=== PATIENT | female | born 1965 | race Caucasian/White ===

== ENCOUNTER 2019-10-30 12:25 | Outpatient (CLI) | payer OTHER, SELFPAY ==
[2019-10-30 13:47] VITALS: BP 145/83; BP 145/85; PULSE 80; PULSE 86; RESP 18; O2SAT 95; O2SAT 96
== END 2019-10-30 13:47 | disposition home or self-care (01) ==
LOC: INF 12:28
PROVIDERS: PCP Nurse Practitioner Family; Visit Provider Nurse Practitioner Family
DX: D50.9 Iron deficiency anemia, unspecified (principal)
CPT/HCPCS: 96365; J1439

== ENCOUNTER 2019-11-06 12:23 | Outpatient (CLI) | payer OTHER, SELFPAY ==
[2019-11-06 12:34] VITALS: BP 171/75; PULSE 75; RESP 18; O2SAT 95
[2019-11-06 13:15] VITALS: BP 139/75; PULSE 74; RESP 18
== END 2019-11-06 13:15 | disposition home or self-care (01) ==
LOC: INF 12:23
PROVIDERS: Visit Provider Nurse Practitioner Family
DX: D50.9 Iron deficiency anemia, unspecified (principal)
CPT/HCPCS: 96365; J1439

== ENCOUNTER → 2020-03-08 17:43 | Outpatient (CLI) | payer OTHER, SELFPAY ==
[2020-03-10 16:24] LABS: Covid-19 Nasal PCR Sendout UK Not Detected
== END ==
PROVIDERS: PCP Nurse Practitioner Family; Visit Provider Nurse Practitioner Family
DX: Z20.828 Contact with and (suspected) exposure to other viral communicable diseases (principal)
CPT/HCPCS: U0003

== ENCOUNTER 2021-04-17 13:51 | Outpatient (CLI) | payer OTHER, SELFPAY ==
[2021-04-17 14:23] VITALS: BP 139/88; PULSE 93; RESP 18; TEMP 36.4; O2SAT 97
[2021-04-17 15:00] VITALS: BP 123/77; PULSE 78; RESP 18; O2SAT 97
== END 2021-04-17 15:00 | disposition home or self-care (01) ==
LOC: INF 13:55
PROVIDERS: PCP Nurse Practitioner Family; Visit Provider Nurse Practitioner Family
DX: D50.9 Iron deficiency anemia, unspecified (principal)
CPT/HCPCS: 96365; J1439

== ENCOUNTER 2021-04-23 14:00 | Outpatient (CLI) | payer OTHER, SELFPAY ==
[2021-04-23 14:22] VITALS: BP 149/79; PULSE 79; RESP 17; TEMP 36.7; O2SAT 96
[2021-04-23 15:15] VITALS: BP 153/76; PULSE 81; RESP 17; TEMP 36.7; O2SAT 97
== END 2021-04-23 15:17 | disposition home or self-care (01) ==
LOC: INF 14:09
PROVIDERS: Visit Provider Nurse Practitioner Family
DX: D50.9 Iron deficiency anemia, unspecified (principal)
CPT/HCPCS: 96365; J1439

== ENCOUNTER 2021-07-20 13:38 | Emergency (ER) | payer OTHER, SELFPAY ==
[2021-07-20 14:00] VITALS: BP 148/99; PULSE 106; RESP 28; TEMP 37.2; O2SAT 89; BMI 43.4
--- NOTE | 2021-07-20 14:00 | XR_ITS ---
PROCEDURE INFORMATION: Exam: XR Chest Exam date and time: 07/20/2021 2:00 PM Age: 56 years old Clinical indication: Cough TECHNIQUE: Imaging protocol: XR of the chest. Views: 1 view. COMPARISON: No relevant prior studies available. FINDINGS: Lungs: Unremarkable. No consolidation. Pleural spaces: Unremarkable. No pleural effusion. No pneumothorax. Heart/Mediastinum: Large hiatal hernia. Bones/joints: Unremarkable. IMPRESSION: Large hiatal hernia.
[2021-07-20 14:01] VITALS: O2SAT 96
[2021-07-20 14:12] LABS: Basophils # 0.1 K/mm3 (0-0.2); Eosinophils # 0.1 K/mm3 (0.0-0.4); Eosinophils % 0.6 % (0.1-12.0); Hematocrit 45.6 % (37.0-47.0); Hemoglobin 15.2 g/dL (12.2-16.2); Lymphocytes # 1.1 K/mm3 (0.7-4.5); Lymphocytes % 9.6 % (10-50); Mean Corpuscular HGB Conc 33.4 g/dL (31.8-35.4); Mean Corpuscular Hemoglobin 29.5 pg (27.0-31.2); Mean Corpuscular Volume 88.5 fl (81-99); Mean Platelet Volume 9.9 fl (7.4-10.4); Monocytes # 0.7 K/mm3 (0.1-1.0); Monocytes % 5.9 % (1.7-9.3); Neutrophils # 9.2 K/mm3 (1.8-7.8); Neutrophils % 82.8 % (37.0-80.0); Platelet Count 278 K/mm3 (142-424); Red Blood Count 5.15 M/mm3 (4.20-5.40); Red Cell Distribution Width 15.3 % (11.5-17.5); White Blood Count 11.2 K/mm3 (4.8-10.8)
[2021-07-20 14:14] LABS: Coronavirus 19, PCR Not Detected (NotDetected); Influenza A, PCR Not Detected (NotDetected); Influenza B, PCR Not Detected (NotDetected)
[2021-07-20 14:25] LABS: Chloride 103 mmol/L (98-107); Potassium 3.8 mmoL/L (3.5-5.1); Sodium 143 mmol/L (136-145)
[2021-07-20 14:26] LABS: ABG Base Excess 1.5 mmol/L (-2.4-2.3); ABG HCO3 25.8 mmhg (22.0-26.0); ABG Oxygen Saturation 98 % (90-100); ABG PCO2 39.5 mmhg (35.0-45.0); ABG PH 7.43 mmol/L (7.35-7.45); ABG PO2 79.4 mmhg (80-100); Allen's Test Acceptable; Oxygen RA %; Source Left Radial
[2021-07-20 14:28] LABS: Alanine Aminotransferase 44 U/L (12-78); Albumin Level 4.3 g/dl (3.5-5.0); Albumin/Globulin Ratio 1.4 (1.1-1.8); Alkaline Phosphatase 88 U/L (38-126); Anion Gap 12.8 mEq/L (5-15); Aspartate Amino Transferase 53 U/L (14-36); Bilirubin,Total 0.2 mg/dl (0.2-1.3); Blood Urea Nitrogen 15 mg/dl (7-17); Carbon Dioxide 31 mmol/L (22.0-30.0); Estimated Glomerular Filt Rate 103 ml/min (>60); GFR (African American) 124 ML/MIN (>60); Total Protein,Serum 7.3 g/dl (6.3-8.2)
[2021-07-20 14:29] LABS: Glucose 199 mg/dl (74-100)
--- NOTE | 2021-07-20 14:31 | ECG_ITS ---
APPROVED REPORT Exam: Resting ECG HR:102 bpm ECG Measurements Heart Rate 102 AXES TX 140 P 105 QRSd 84 QRS -13 QT 336 T 85 QTc 437 Conclusion Sinus tachycardia Otherwise normal ECG Electronically signed by : Everett He MD 07/21/2021 20:18:06
[2021-07-20 14:38] LABS: NT Pro Brain Natriuretic Pep. 228 pg/mL (0-125)
[2021-07-20 14:43] LABS: Troponin I 0.01 ng/ml (0.00-0.034)
--- NOTE | 2021-07-20 14:49 | CT_ITS ---
PROCEDURE INFORMATION: Exam: CTA Chest With Contrast Exam date and time: 07/20/2021 2:49 PM Age: 56 years old Clinical indication: Shortness of breath; Additional info: Short of breath TECHNIQUE: Imaging protocol: Computed tomographic angiography of the chest with contrast. 3D rendering (Not supervised by radiologist): MIP and/or 3D reconstructed images were created by the technologist. Radiation optimization: All CT scans at this facility use at least one of these dose optimization techniques: automated exposure control; mA and/or kV adjustment per patient size (includes targeted exams where dose is matched to clinical indication); or iterative reconstruction. Contrast material: ISOVUE 370; Contrast volume: 70 ml; Contrast route: INTRAVENOUS (IV); COMPARISON: CR XR CHEST PORTABLE 07/20/2021 2:09 PM FINDINGS: Pulmonary arteries: Negative for acute pulmonary embolism. Aorta: Unremarkable. No aortic aneurysm. No aortic dissection. Lungs: Patchy ground-glass densities bilateral upper lobes, left worse than right. Nonspecific finding although multifocal pneumonia suspected. Clinical correlation necessary. Pleural spaces: Unremarkable. No pneumothorax. No pleural effusion. Heart: Unremarkable. No cardiomegaly. No pericardial effusion. Lymph nodes: Unremarkable. No enlarged lymph nodes. Diaphragm: Large hiatal hernia. Bones/joints: Unremarkable. No acute fracture. Soft tissues: Unremarkable. Other findings: Previous granulomatous exposure. IMPRESSION: 1. Negative for acute pulmonary embolism. 2. Large hiatal hernia. 3. Patchy ground-glass densities bilateral upper lobes, left worse than right. Nonspecific finding although multifocal pneumonia suspected. Clinical correlation necessary.
--- NOTE | 2021-07-20 14:57 | [facility].EDGENADL ---
ED Disposition Clinical Impression: Atypical pneumonia Asthma with exacerbation Qualifiers: Asthma severity: mild Asthma persistence: intermittent Qualified Code(s): J45.21 - Mild intermittent asthma with (acute) exacerbation Disposition: Home, Self-Care Condition on Discharge: Good Instructions: DI for Atypical Pneumonia Prescriptions: cephALEXin [Cephalexin 500mg Tab] 500 mg PO BID #14 tab Transmission Status: Pending to [id number] Referrals: Sofia Borges [Primary Care Provider] - - Critical Care Critical Care Time: No Attestation: On 07/20/21, the high probability of a clinically significant, sudden or life threatening deterioration of the following system(s) required my full and direct attention, intervention and personal management. The time I documented below is in addition to time spent performing reported procedures but includes the following listed in this critical care notation. Medical Decision Making - Medical Records Medical records reviewed: Yes: I reviewed the patient's medical records. - Joe Inquiry Pt receiving controlled substance: No Vital Signs: 07/20/21 14:00 07/20/21 14:01 Temperature 98.9 F Temperature Source Oral Pulse Rate [Left Radial] 106 H Respiratory Rate 18 Blood Pressure [Right Arm] 148/99 H Blood Pressure Mean [Right Arm] 115 Blood Pressure Source [Right Arm] Automatic Cuff Blood Pressure Position [Right Arm] Sitting 02 Sat by Pulse Oximetry 89 L 96 Oxygen Delivery Method Room Air Nasal Cannula Oxygen Flow Rate (LPM) 2 - Lab Data Lab Results 07/20/21 13:50: SARS-CoV-2 (PCR) Not detected, Influenza A Untype (PCR) Not detected, Influenza Type B (PCR) Not detected 07/20/21 14:00: Specimen Source Left radial, O2 % Ra, ABG pH 7.43, ABG pCO2 39.5, ABG pO2 79.4 L, ABG HCO3 25.8, ABG Total CO2 27.0, ABG O2 Saturation 98, ABG Base Excess 1.5, Yong Test Acceptable 07/20/21 14:00: WBC 11.2 H, RBC 5.15, Hgb 15.2, Hct 45.6, MCV 88.5, MCH 29.5, MCHC 33.4, RDW 15.3, Plt Count 278, MPV 9.9, Neut % (Auto) 82.8 H, Lymph % (Auto) 9.6 L, [place] % (Auto) 5.9, Eos % (Auto) 0.6, Baso % (Auto) 1.0, Neut # (Auto) 9.2 H, Lymph # (Auto) 1.1, [place] # (Auto) 0.7, Eos # (Auto) 0.1, Baso # (Auto) 0.1 07/20/21 14:00: Sodium 143, Potassium 3.8, Chloride 103, Carbon Dioxide 31 H, Anion Gap 12.8, BUN 15, Creatinine 0.60, Estimated GFR 103, Est GFR ( Amer) 124, Glucose 199 H, Calcium 9.0, Total Bilirubin 0.2, AST 53 H, ALT 44, Alkaline Phosphatase 88, Troponin I 0.01, NT-Pro-B Natriuret Pep 228 H, Total Protein 7.3, Albumin 4.3, Globulin 3.0, Albumin/Globulin Ratio 1.4 07/20/21 14:35: Lactate 2.5 H Result diagrams: 07/20/21 14:00 07/20/21 14:00 Orders (Tests/Meds): ED MEDICATIONS Discontinued Medications Generic Name Dose Route Start Last Admin Trade Name Freq PRN Reason Stop Dose Admin Albuterol/Ipratropium 3 ml 07/20/21 14:01 07/20/21 14:13 Ipratropium/Albuterol 3 Ml Neb IH 07/20/21 14:02 3 ml ONCE ONE Administration Dexamethasone Sodium Phosphate 10 mg 07/20/21 14:01 07/20/21 14:40 Dexamethasone 4mg/Ml 5ml Mdv IV 07/20/21 14:02 10 mg ONCE ONE Administration Iopamidol 70 ml 07/20/21 15:05 07/20/21 15:06 Iopamidol-370 (76%);100ml Bottle IV 07/20/21 15:06 70 ml ONCE ONE Administration Sodium Chloride 50 ml 07/20/21 15:05 07/20/21 15:07 0.9 % Sodium Chloride 50 Ml Vial IV 07/20/21 15:06 50 ml ONCE ONE Administration Sodium Chloride 10 ml 07/20/21 15:05 07/20/21 15:07 Sodium Chloride 0.9% 10ml Syr (Rad Only) IV 07/20/21 15:06 10 ml ONCE ONE Administration ORDERS Category Date Time Status Troponin I Q3H Lab 07/20/21 17:15 Ordered Troponin I Q3H Lab 07/20/21 20:15 Ordered Blood Culture Stat Micro 07/20/21 14:35 Received - Radiology Data #1 Image(s): Chest Image Reviewed: Yes I reviewed the patient's radiology results, Yes I reviewed the patient's radiology image, Yes I have reviewed r
[2021-07-20 15:10] LABS: Lactic Acid 2.5 mmol/L (0.7-2.1)
[2021-07-20 16:15] VITALS: BP 136/89; PULSE 98; RESP 20; TEMP 37.2; O2SAT 93
== END 2021-07-20 16:16 | disposition home or self-care (01) ==
PROVIDERS: Emergency Provider Emergency Medicine; PCP Nurse Practitioner Family
DX: J45.21 Mild intermittent asthma with (acute) exacerbation (principal); J18.9 Pneumonia, unspecified organism; I10 Essential (primary) hypertension; E11.9 Type 2 diabetes mellitus without complications; Z88.0 Allergy status to penicillin; Z88.2 Allergy status to sulfonamides
CPT/HCPCS: 36415; 71045; 71275; 80053; 82803; 83605; 83880; 84484; 85025; 87040; 93005; 96374; 99283; C9803; Q9967; U0003; U0005

== ENCOUNTER → 2021-08-24 13:34 | Outpatient (CLI) | payer OTHER, SELFPAY ==
--- NOTE | 2021-08-24 13:55 | XR_ITS ---
PROCEDURE INFORMATION: Exam: XR Chest Exam date and time: 08/24/2021 1:55 PM Age: 56 years old Clinical indication: Cough; Additional info: Shortness of breath, acute uri per da cardoza np TECHNIQUE: Imaging protocol: XR of the chest. Views: 2 views. COMPARISON: CR XR CHEST PORTABLE 07/20/2021 2:09 PM FINDINGS: Lungs: Unremarkable. No consolidation. Pleural spaces: Unremarkable. No pleural effusion. No pneumothorax. Heart/Mediastinum: 8 cm hiatal hernia was identified on the prior study . Stable cardiac silhouette Bones/joints: Unremarkable. IMPRESSION: No acute process
== END ==
PROVIDERS: PCP Nurse Practitioner Family; Visit Provider Nurse Practitioner Family
DX: J06.9 Acute upper respiratory infection, unspecified (principal)
CPT/HCPCS: 71046

== ENCOUNTER 2023-01-07 13:59 | Outpatient (CLI) | payer OTHER, SELFPAY ==
[2023-01-07 14:35] VITALS: BP 114/75; PULSE 82; RESP 16; O2SAT 96
[2023-01-07 15:05] VITALS: BP 108/66; PULSE 83; RESP 16
== END 2023-01-07 15:20 | disposition home or self-care (01) ==
LOC: INF 14:00
PROVIDERS: PCP Nurse Practitioner Family; Visit Provider Nurse Practitioner Family
DX: D50.9 Iron deficiency anemia, unspecified (principal)
CPT/HCPCS: 96365; J1439

== ENCOUNTER 2023-01-14 13:57 | Outpatient (CLI) | payer OTHER, SELFPAY ==
[2023-01-14 14:21] VITALS: BP 121/75; PULSE 75; RESP 18; TEMP 36.6; O2SAT 98
[2023-01-14 15:00] VITALS: BP 119/56; PULSE 79; RESP 18; O2SAT 98
== END 2023-01-14 15:05 | disposition home or self-care (01) ==
LOC: INF 14:00
PROVIDERS: PCP Nurse Practitioner Family; Visit Provider Nurse Practitioner Family
DX: D50.9 Iron deficiency anemia, unspecified (principal)
CPT/HCPCS: 96365; J1439

== ENCOUNTER 2023-08-08 14:10 | Emergency (ER) | payer OTHER, SELFPAY ==
[2023-08-08 14:11] VITALS: BP 136/83; PULSE 106; RESP 20; TEMP 37.9; O2SAT 96; BMI 50.0
--- NOTE | 2023-08-08 14:24 | ECG_ITS ---
APPROVED REPORT Exam: Resting ECG HR:99 bpm ECG Measurements Heart Rate 99 AXES NV 155 P 29 QRSd 91 QRS -26 QT 306 T 99 QTc 362 Conclusion SINUS RHYTHM WITH SINUS ARRHYTHMIA POSSIBLE ANTERIOR MYOCARDIAL INFARCTION , OF INDETERMINATE AGE [30 ms Q WAVE IN V3/V4, OR R < 0.2 mV IN V4] ABNORMAL ECG UNCONFIRMED REPORT Electronically signed by : Everett He MD 08/09/2023 17:38:49
[2023-08-08 14:30] VITALS: BP 122/80; PULSE 90; RESP 24; O2SAT 93
--- NOTE | 2023-08-08 14:32 | XR_ITS ---
PROCEDURE INFORMATION: Exam: XR Chest Exam date and time: 08/08/2023 2:36 PM Age: 58 years old Clinical indication: Cough; Additional info: Cough x 1 week TECHNIQUE: Imaging protocol: Radiologic exam of the chest. Views: 1 view. COMPARISON: CR XR CHEST 2V 08/24/2021 1:49 PM FINDINGS: Tubes, catheters and devices: EKG leads. Lungs: Unremarkable. No consolidation. Pleural spaces: Unremarkable. No pleural effusion. No pneumothorax. Heart/Mediastinum: Large hiatal hernia. Bones/joints: Unremarkable. IMPRESSION: Large hiatal hernia.
--- NOTE | 2023-08-08 14:36 | PC.NURSE ---
covid swab sent to lab
--- NOTE | 2023-08-08 14:42 | PC.NURSE ---
RAD at for CXR
[2023-08-08 14:46] LABS: Basophils % 0.5 % (0.1-2.0); Eosinophils # 0.2 K/mm3 (0.0-0.4); Eosinophils % 2.9 % (0.1-12.0); Hematocrit 41.7 % (37.0-47.0); Hemoglobin 13.6 g/dL (12.2-16.2); Lymphocytes # 0.3 K/mm3 (0.7-4.5); Lymphocytes % 6.5 % (10-50); Mean Corpuscular HGB Conc 32.7 g/dL (31.8-35.4); Mean Corpuscular Hemoglobin 27.8 pg (27.0-31.2); Mean Corpuscular Volume 85.2 fl (81-99); Monocytes # 0.5 K/mm3 (0.1-1.0); Monocytes % 10.2 % (1.7-9.3); Neutrophils # 4.1 K/mm3 (1.8-7.8); Neutrophils % 79.9 % (37.0-80.0); Platelet Count 201 K/mm3 (142-424); Red Blood Count 4.89 M/mm3 (4.20-5.40); Red Cell Distribution Width 13.8 % (11.5-17.5); White Blood Count 5.2 K/mm3 (4.8-10.8)
--- NOTE | 2023-08-08 14:46 | PC.NURSE ---
DR MONTALVO AT BEDSIDE
[2023-08-08 14:47] LABS: Chloride 99 mmol/L (98-107); Potassium 3.8 mmoL/L (3.5-5.1); Sodium 136 mmol/L (136-145)
[2023-08-08 14:48] LABS: Influenza A, PCR Not Detected (NotDetected); Influenza B, PCR Not Detected (NotDetected)
[2023-08-08 14:50] LABS: Alanine Aminotransferase 62 U/L (12-78); Albumin Level 4.3 g/dl (3.5-5.0); Albumin/Globulin Ratio 1.3 (1.1-1.8); Alkaline Phosphatase 89 U/L (38-126); Anion Gap 11.8 mEq/L (5-15); Aspartate Amino Transferase 101 U/L (14-36); Bilirubin,Total 0.4 mg/dl (0.2-1.3); Blood Urea Nitrogen 10 mg/dl (7-17); Carbon Dioxide 29 mmol/L (22.0-30.0); Creatinine Clearance Estimated 54 mL/min (50-200); Estimated Glomerular Filt Rate 73 ml/min (>60); GFR (African American) 89 ML/MIN (>60); Globulin 3.2 g/dL (1.3-3.2); Total Protein,Serum 7.5 g/dl (6.3-8.2)
[2023-08-08 14:51] LABS: Calcium 8.7 mg/dl (8.4-10.2); Glucose 166 mg/dl (74-100)
--- NOTE | 2023-08-08 14:53 | [facility].EDGENADL ---
Discharge Plan Disposition Patient Disposition: Home, Self-Care Chief Complaint: Shortness of Breath/Dyspnea Prescriptions Prescriptions: No Action fluoxetine 40 mg Capsule 40 mg PO DAILY pramipexole 1 mg Tablet 1 mg PO DAILY furosemide [Lasix] 40 mg Tablet 40 mg PO DAILY potassium chloride 10 mEq Capsule, Extended Release 10 meq PO BID amlodipine 10 mg Tablet 10 mg PO DAILY pantoprazole 40 mg Tablet,Delayed Release (Dr/Ec) 40 mg PO DAILY metformin 1,000 mg Tablet 1,000 mg PO BID benazepril 40 mg Tablet 40 mg PO DAILY loratadine 10 mg Tablet 10 mg PO DAILY fluticasone propion-salmeterol [Advair HFA] 115-21 mcg/actuation Hfa Aerosol Inhaler 2 puff INHALATION BID nebivolol 10 mg Tablet 10 mg PO DAILY cholecalciferol (vitamin D3) [Vitamin D3] 125 mcg (5,000 unit) Tablet 125 mcg PO DAILY Referrals Follow up/Referrals: Sofia Borges [Primary Care Provider] - See instructions Activity Restrictions/Add. Instructions Additional Instructions/Restrictions: At this time it was felt you are safe to be discharged home. If new or worsening symptoms please do not hesitate to return the emergency department. If symptoms persist please follow-up with your family doctor as you are able. Clinical Impressions Clinical Impression: Headache, Laryngitis, COVID-19 Discharge ED Provider: Clemente Ortiz General Adult HPI General Chief complaint: Shortness of Breath/Dyspnea Stated complaint: lightheaded,chills,weakness,palpitations Time Seen by Provider: 08/08/23 14:34 Mode of Arrival: Wheelchair Source of Information: Patient Limitations: No Limitations Description of Symptoms (Recalled from ER Triage Doc. by RN): PT REPORTS PRODUCTIVE COUGH ABOUT 1 WEEK, BECAME HOARSE LAST NIGHT. WOKE THIS AM WITH DIZZINESS. REPORTS CHILLS, SHORTNESS OF BREATH AND HEART RACING DENIES CHEST PAIN AT THIS TIME History of Present Illness HPI narrative: Patient is a 58-year-old female past medical history of [id number] diabetes who presents emergency department for evaluation of multiple complaints. Patient has a history of asthma at home however does not take breathing treatments frequently due to raising her blood pressure. She has had increased urinary frequency however has had good glycemic control with sugars between 100-200. She has had a cough for about a week, last night her voice became hoarse and she has woken up with dizziness, bifrontal headache. Denies chest pain. Headache is nonmodifiable, no photophobia. No other acute complaints at this time. Related Data Home Medications Medication Instructions Recorded Confirmed amlodipine 10 mg tablet 10 mg PO DAILY Hypertension 01/07/23 01/14/23 benazepril 40 mg tablet 40 mg PO DAILY Hypertension 01/07/23 01/14/23 cholecalciferol (vitamin D3) 125 125 mcg PO DAILY Supplement 01/07/23 01/14/23 mcg (5,000 unit) tablet (Vitamin D3) fluoxetine 40 mg capsule 40 mg PO DAILY MOOD 01/07/23 01/14/23 fluticasone propionate 115 2 puff inhalation BID Asthma 01/07/23 01/14/23 mcg-salmeterol 21 mcg/actuation HFA inhaler (Advair HFA) furosemide 40 mg tablet (Lasix) 40 mg PO DAILY FLUID RETENTION 01/07/23 01/14/23 loratadine 10 mg tablet 10 mg PO DAILY ALLERGIES 01/07/23 01/14/23 metformin 1,000 mg tablet 1,000 mg PO BID DIABETES 01/07/23 01/14/23 nebivolol 10 mg tablet 10 mg PO DAILY Hypertension 01/07/23 01/14/23 pantoprazole 40 mg tablet,delayed 40 mg PO DAILY GERD 01/07/23 01/14/23 release potassium chloride 10 mEq 10 meq PO BID Supplement 01/07/23 01/14/23 capsule,extended release pramipexole 1 mg tablet 1 mg PO DAILY RLS 01/07/23 01/14/23 Allergies Allergy/AdvReac Type Severity Reaction Status Date / Time erythromycin base Allergy Intermediate BLISTERS Verified 11/06/19 14:16 [ERYTHROMYCIN BASE] IN MOUTH Sulfa (Sulfonamide Allergy Intermediate I-HIVES Verified 11/06/19 14:16 Antibiotics)
[2023-08-08 15:01] LABS: POC Glucose,Bedside 129 (70-110)
[2023-08-08 15:02] LABS: Microscopic, Urine URINE MICROSCOPIC (MICROSCOPIC)
[2023-08-08 15:12] LABS: Appearance,Urine CLEAR (Clear); Bilirubin,Urine Negative (Negative); Blood, Urine Negative (Negative); Color,Urine YELLOW (Yellow); Glucose,Urine (UA) Negative (Negative); Ketones,Urine Negative (Negative); Leukocyte Esterase,Urine Negative (Negative); Nitrate,Urine Negative (Negative); PH,Urine 6.5 (5.0-8.5); Protein,Urine Negative (Negative); Urobilinogen,Urine 0.2 EU/dl (0.2)
[2023-08-08 15:21] LABS: Coronavirus 19, PCR Detected (NotDetected)
--- NOTE | 2023-08-08 15:25 | PC.NURSE ---
DR MONTALVO AT BEDSIDE
[2023-08-08 15:26] VITALS: BP 111/68; PULSE 82; RESP 14; O2SAT 94
[2023-08-08 15:30] VITALS: BP 109/66; PULSE 82; RESP 30; O2SAT 92
[2023-08-08 17:05] VITALS: BP 109/66; PULSE 86; RESP 20; TEMP 36.8; O2SAT 92
== END 2023-08-08 17:06 | disposition home or self-care (01) ==
PROVIDERS: Emergency Provider Emergency Medicine; PCP Nurse Practitioner Family
DX: U07.1 COVID-19 (principal); R51.9 Headache, unspecified; J04.0 Acute laryngitis; R42 Dizziness and giddiness; R06.02 Shortness of breath; E11.9 Type 2 diabetes mellitus without complications; I10 Essential (primary) hypertension; J45.909 Unspecified asthma, uncomplicated
CPT/HCPCS: 71045; 80053; 81001; 82962; 85025; 87636; 93005; 96374; 96375; 99285; J0131

== ENCOUNTER 2024-01-25 08:00 | Outpatient (RCR) | payer OTHER, SELFPAY | END 2024-02-24 17:00 | disposition home or self-care (01) | LOC: PT 08:00 | PROVIDERS: Visit Provider Orthopaedic Surgery Adult Reconstructive Orthopaedic Surgery | DX: M75.41 Impingement syndrome of right shoulder (principal) | CPT/HCPCS: 97010; 97014; 97110; 97163; 97164; 97530; G0283 ==

== ENCOUNTER 2024-04-27 13:54 | Outpatient (CLI) | payer OTHER, SELFPAY ==
[2024-04-27] VITALS (7 sets, daily range): BP systolic 113–145; BP diastolic 67–81; PULSE 76–81; RESP 18; TEMP 36.2; O2SAT 98–99
[2024-04-27] MEDS: SODIUM CHLORIDE 0.9% 50ML BAG 50 ML IV (14:13)
[2024-04-27] MEDS: SODIUM CHLORIDE 0.9% 10ML FLUSH SYRINGE 10 ML IV (14:13)
== END 2024-04-27 17:26 | disposition home or self-care (01) ==
LOC: INF 13:55
PROVIDERS: PCP Nurse Practitioner Family; Visit Provider Nurse Practitioner Family
DX: D50.9 Iron deficiency anemia, unspecified (principal)
CPT/HCPCS: 96365; 96366; J1756

== ENCOUNTER 2024-05-12 12:53 | Outpatient (CLI) | payer OTHER, SELFPAY ==
[2024-05-12 13:08] VITALS: BP 137/82; PULSE 86; RESP 18; TEMP 36.3; O2SAT 97
[2024-05-12] MEDS: SODIUM CHLORIDE 0.9% 10ML FLUSH SYRINGE 10 ML IV (13:17)
[2024-05-12] MEDS: SODIUM CHLORIDE 0.9% 50ML BAG 50 ML IV (13:17)
[2024-05-12 14:08] VITALS: BP 141/76; PULSE 81; RESP 18; O2SAT 97
[2024-05-12 15:08] VITALS: BP 142/81; PULSE 71; RESP 18; O2SAT 98
[2024-05-12 16:12] VITALS: BP 125/84; PULSE 68; RESP 18; O2SAT 98
== END 2024-05-12 16:20 | disposition home or self-care (01) ==
LOC: INF 12:53
PROVIDERS: PCP Nurse Practitioner Family; Visit Provider Nurse Practitioner Family
DX: D50.9 Iron deficiency anemia, unspecified (principal)
CPT/HCPCS: 96365; 96366

== ENCOUNTER 2024-11-29 17:00 | Outpatient (RCR) | payer OTHER, SELFPAY | END 2024-12-04 15:57 | disposition home or self-care (01) | LOC: PT 17:00 | PROVIDERS: PCP Nurse Practitioner Family; Visit Provider Nurse Practitioner Family | DX: M53.3 Sacrococcygeal disorders, not elsewhere classified (principal) | CPT/HCPCS: 97110; 97140; 97163 ==

== ENCOUNTER 2025-01-10 11:38 | Outpatient (CLI) | payer OTHER, SELFPAY ==
[2025-01-10 11:50] VITALS: BP 134/83; PULSE 105; RESP 20; TEMP 36.4; O2SAT 98
[2025-01-10] MEDS: SODIUM CHLORIDE 0.9% 50ML BAG 50 ML IV (11:50)
[2025-01-10] MEDS: SODIUM CHLORIDE 0.9% 10ML FLUSH SYRINGE 10 ML IV (11:51)
[2025-01-10 12:50] VITALS: BP 129/75; PULSE 98; RESP 20; O2SAT 98
[2025-01-10 13:20] VITALS: BP 121/77; PULSE 78; RESP 20; O2SAT 97
== END 2025-01-10 13:20 | disposition home or self-care (01) ==
LOC: INF 11:39
PROVIDERS: PCP Nurse Practitioner Family; Visit Provider Nurse Practitioner Family
DX: D50.9 Iron deficiency anemia, unspecified (principal)
CPT/HCPCS: 96365; J1756

== ENCOUNTER 2025-01-24 11:34 | Outpatient (CLI) | payer OTHER, SELFPAY ==
[2025-01-24] MEDS: SODIUM CHLORIDE 0.9% 50ML BAG 50 ML IV (11:53)
[2025-01-24 12:04] VITALS: BP 140/86; PULSE 73; RESP 18; O2SAT 98
[2025-01-24 13:30] VITALS: BP 152/86; PULSE 76; RESP 17
== END 2025-01-24 13:40 | disposition home or self-care (01) ==
LOC: INF 11:34
PROVIDERS: PCP Nurse Practitioner Family; Visit Provider Nurse Practitioner Family
DX: D50.9 Iron deficiency anemia, unspecified (principal)
CPT/HCPCS: 96365; J1756